=== PATIENT | male | born 1970 | race African-American/Black ===

== ENCOUNTER 2021-06-20 17:30 | Inpatient (IN) | payer OTHER ==
[~2021-06-20] VITALS: Ht 185.4 cm; Wt 233.8 kg
[2021-06-20] MEDS ORDERED: FUROSEMIDE INJ 10 MG/ML 4 ML VIAL IV ONE (21:30)
[2021-06-20] MEDS ORDERED: HYDROCODONE/APAP 10MG-325MG TAB PO ONE (21:45)
[2021-06-20] MEDS ORDERED: FUROSEMIDE INJ 10 MG/ML 4 ML VIAL ONE (21:53)
[2021-06-20] MEDS ORDERED: HYDROCODONE/APAP 5MG-325MG TAB ONE (21:58)
[2021-06-20] MEDS: FUROSEMIDE INJ 10 MG/ML 4 ML VIAL IV SCH (22:00)
[2021-06-20] MEDS ORDERED: ONDANSETRON HCL INJ 2MG/ML 2ML 2 MG/ML VIAL IV PRN (22:00)
[2021-06-20] MEDS ORDERED: HYDROCODONE/APAP 5MG-325MG TAB PO ONE (22:00)
[2021-06-20] MEDS ORDERED: ASPIRIN 81 MG CHEW TAB PO ONE (22:00)
[2021-06-20] MEDS ORDERED: SODIUM CHLORIDE FLUSH 10 ML SYR INJ PRN (22:00)
[2021-06-20] MEDS: RIVAROXABAN 10 MG TABLET PO SCH (22:04)
[2021-06-20 23:22] VITALS: BP 166/95
[2021-06-21] VITALS (8 sets, daily range): BP systolic 113–172; BP diastolic 70–97
[2021-06-21] MEDS ORDERED: TRAZODONE HCL100 MG PO (00:15)
[2021-06-21] MEDS ORDERED: FUROSEMIDE40 MG PO (00:15)
[2021-06-21] MEDS ORDERED: CARVEDILOL25 MG PO (00:15)
[2021-06-21] MEDS ORDERED: POTASSIUM CHLO20 ME1 PO (00:15)
[2021-06-21] MEDS ORDERED: ALLOPURINOL100 MG PO (00:15)
[2021-06-21] MEDS ORDERED: AMLODIPINE BESY10 MG PO (00:15)
[2021-06-21] MEDS ORDERED: HYDRALAZINE HC100 MG PO (00:15)
[2021-06-21] MEDS: FUROSEMIDE INJ 10 MG/ML 4 ML VIAL IV SCH ×5 (06:04→23:52)
[2021-06-21 07:03] LABS: BASOPHILS % 0.4 % (0.0-1.0); EOSINOPHILS # (AUTO) 0.2 (0.0-0.4); EOSINOPHILS % 2.3 % (0.0-6.0); HEMATOCRIT 42.9 % (38.2-49.6); HEMOGLOBIN 14.3 g/dL (14.0-18.0); LYMPHOCYTES # (AUTO) 1.3 (1.0-3.2); LYMPHOCYTES % 18.1 % (18.0-39.1); MEAN CORPUSCULAR HEMOGLOBIN 30.5 pg (28-32); MEAN CORPUSCULAR HGB CONC 33.3 g/dL (31-35); MEAN CORPUSCULAR VOLUME 91.5 fL (81-99); MONOCYTES # (AUTO) 0.8 (0.2-0.8); MONOCYTES % 10.9 % (4.4-11.3); PLATELET COUNT 242 x10e3/uL (140-360); RED BLOOD COUNT 4.69 x10e6/uL (4.3-5.7); RED CELL DISTRIBUTION WIDTH 15.5 % (11.7-14.4)
[2021-06-21 07:29] LABS: ALBUMIN 3.3 g/dL (3.5-5.0); ALBUMIN/GLOBULIN RATIO 0.7 (0.8-2.0); ANION GAP 13.3 mmol/L (8-16); CALCIUM 8.9 mg/dL (8.4-10.2); CHOL/HDL RATIO 4.7 (3.9-4.7); CREATININE, SERUM 1.69 mg/dL (0.72-1.25); POTASSIUM 3.3 mmol/L (3.5-5.1)
[2021-06-21 07:36] LABS: CREATINE KINASE MB 2.6 ng/mL (0-5.0)
[2021-06-21] MEDS: TAMSULOSIN HCL 0.4 MG CAP PO SCH (09:00)
[2021-06-21] MEDS: RIVAROXABAN 10 MG TABLET PO SCH ×2 (09:00→17:51)
[2021-06-21] MEDS ORDERED: POTASSIUM CHLORIDE 20 MEQ TAB CR PO NR (09:31)
[2021-06-21] MEDS: AMLODIPINE BESYLATE 10 MG TAB PO SCH (13:10)
[2021-06-21] MEDS: HYDRALAZINE HCL 100 MG TABLET PO SCH ×2 (13:10→17:55)
[2021-06-21] MEDS ORDERED: ACETAMINOPHEN 325 MG TAB PO PRN (14:15)
[2021-06-21 15:54] LABS: ANION GAP 12.3 mmol/L (8-16); CALCIUM 9.4 mg/dL (8.4-10.2); CREATININE, SERUM 1.76 mg/dL (0.72-1.25); POTASSIUM 3.3 mmol/L (3.5-5.1)
[2021-06-21 16:13] LABS: CREATINE KINASE MB 2.9 ng/mL (0-5.0)
[2021-06-21] MEDS: CARVEDILOL 12.5 MG TAB PO SCH (17:55)
[2021-06-21] MEDS: POTASSIUM CHLORIDE 20 MEQ TAB CR PO SCH (17:56)
[2021-06-21] MEDS: HYDROCODONE/APAP 7.5MG-325MG 1 EA TAB PO PRN (18:00)
[2021-06-21] MEDS ORDERED: HYDRALAZINE HCL 100 MG TABLET PO SCH (21:00)
[2021-06-21] MEDS: TRAZODONE HCL 50 MG TAB PO SCH (22:11)
[2021-06-22] VITALS (7 sets, daily range): BP systolic 103–136; BP diastolic 57–86
[2021-06-22] MEDS: FUROSEMIDE INJ 10 MG/ML 4 ML VIAL IV SCH ×4 (05:33→23:30)
[2021-06-22 05:49] LABS: BASOPHILS % 0.3 % (0.0-1.0); EOSINOPHILS # (AUTO) 0.2 (0.0-0.4); EOSINOPHILS % 2.4 % (0.0-6.0); HEMATOCRIT 43.8 % (38.2-49.6); HEMOGLOBIN 14.5 g/dL (14.0-18.0); LYMPHOCYTES # (AUTO) 1.1 (1.0-3.2); LYMPHOCYTES % 16.1 % (18.0-39.1); MEAN CORPUSCULAR HEMOGLOBIN 30.3 pg (28-32); MEAN CORPUSCULAR HGB CONC 33.1 g/dL (31-35); MEAN CORPUSCULAR VOLUME 91.6 fL (81-99); MONOCYTES # (AUTO) 0.8 (0.2-0.8); MONOCYTES % 11.8 % (4.4-11.3); NEUTROPHILS # (AUTO) 4.9 (2.1-6.9); NEUTROPHILS % 69.3 % (38.7-80.0); PLATELET COUNT 262 x10e3/uL (140-360); RED BLOOD COUNT 4.78 x10e6/uL (4.3-5.7); RED CELL DISTRIBUTION WIDTH 15.5 % (11.7-14.4)
[2021-06-22 06:24] LABS: ALBUMIN 3.4 g/dL (3.5-5.0); ALBUMIN/GLOBULIN RATIO 0.7 (0.8-2.0); ANION GAP 14.4 mmol/L (8-16); CALCIUM 9.4 mg/dL (8.4-10.2); CHOL/HDL RATIO 4.5 (3.9-4.7); CREATININE, SERUM 1.74 mg/dL (0.72-1.25); POTASSIUM 3.4 mmol/L (3.5-5.1)
[2021-06-22 06:34] LABS: CREATINE KINASE MB 2.2 ng/mL (0-5.0)
[2021-06-22 06:46] LABS: THYROID STIMULATING HORMONE 1.41 uIU/mL (0.350-4.940)
[2021-06-22] MEDS ORDERED: POTASSIUM CHLORIDE 20 MEQ TAB CR PO ONE (09:00)
[2021-06-22] MEDS: CARVEDILOL 12.5 MG TAB PO SCH ×2 (09:27→17:00)
[2021-06-22] MEDS: POTASSIUM CHLORIDE 20 MEQ TAB CR PO SCH ×2 (09:28→17:23)
[2021-06-22] MEDS: RIVAROXABAN 10 MG TABLET PO SCH ×2 (09:28→17:23)
[2021-06-22] MEDS: AMLODIPINE BESYLATE 10 MG TAB PO SCH (09:28)
[2021-06-22] MEDS: TAMSULOSIN HCL 0.4 MG CAP PO SCH (09:28)
[2021-06-22] MEDS: ALLOPURINOL 100 MG TAB PO SCH (09:29)
[2021-06-22] MEDS: HYDRALAZINE HCL 100 MG TABLET PO SCH ×3 (09:31→21:00)
[2021-06-22] MEDS: HYDROCODONE/APAP 7.5MG-325MG 1 EA TAB PO PRN ×2 (09:32→17:29)
[2021-06-22] MEDS ORDERED: ONDANSETRON HCL 4 MG ORAL DISINTEGRATING TAB PO PRN (10:00)
[2021-06-22 14:38] LABS: ANION GAP 12.7 mmol/L (8-16); CALCIUM 9.1 mg/dL (8.4-10.2); CREATININE, SERUM 2.12 mg/dL (0.72-1.25); POTASSIUM 3.7 mmol/L (3.5-5.1)
[2021-06-22] MEDS: TRAZODONE HCL 50 MG TAB PO SCH (23:30)
[2021-06-23] VITALS (9 sets, daily range): BP systolic 102–133; BP diastolic 58–84
[2021-06-23] MEDS: FUROSEMIDE INJ 10 MG/ML 4 ML VIAL IV SCH ×2 (05:59→16:41)
[2021-06-23] MEDS: TAMSULOSIN HCL 0.4 MG CAP PO SCH (08:07)
[2021-06-23] MEDS: POTASSIUM CHLORIDE 20 MEQ TAB CR PO SCH ×2 (08:07→16:47)
[2021-06-23] MEDS: CARVEDILOL 12.5 MG TAB PO SCH ×2 (08:07→16:41)
[2021-06-23] MEDS: RIVAROXABAN 10 MG TABLET PO SCH ×2 (08:08→16:47)
[2021-06-23] MEDS: HYDRALAZINE HCL 100 MG TABLET PO SCH ×3 (08:08→20:42)
[2021-06-23] MEDS: ALLOPURINOL 100 MG TAB PO SCH (08:08)
[2021-06-23] MEDS: AMLODIPINE BESYLATE 5 MG TAB PO SCH (08:08)
[2021-06-23] MEDS: DIGOXIN 0.125 MG TAB PO SCH (12:25)
[2021-06-23] MEDS: HYDROCODONE/APAP 7.5MG-325MG 1 EA TAB PO PRN ×2 (16:45→22:55)
[2021-06-23] MEDS: TRAZODONE HCL 50 MG TAB PO SCH (20:42)
[2021-06-24 00:34] VITALS: BP 120/67
[2021-06-24 04:21] VITALS: BP 121/64
[2021-06-24] MEDS: HYDROCODONE/APAP 7.5MG-325MG 1 EA TAB PO PRN ×2 (04:55→11:11)
[2021-06-24 06:35] LABS: ANION GAP 14.8 mmol/L (8-16); CALCIUM 9.2 mg/dL (8.4-10.2); CREATININE, SERUM 2.39 mg/dL (0.72-1.25); POTASSIUM 3.8 mmol/L (3.5-5.1)
[2021-06-24 08:46] VITALS: BP 121/65
[2021-06-24] MEDS: CARVEDILOL 12.5 MG TAB PO SCH (09:28)
[2021-06-24] MEDS: TAMSULOSIN HCL 0.4 MG CAP PO SCH (09:29)
[2021-06-24] MEDS: HYDRALAZINE HCL 100 MG TABLET PO SCH (09:29)
[2021-06-24] MEDS: DIGOXIN 0.125 MG TAB PO SCH (09:30)
[2021-06-24] MEDS: AMLODIPINE BESYLATE 5 MG TAB PO SCH (09:30)
[2021-06-24] MEDS: ALLOPURINOL 100 MG TAB PO SCH (09:31)
[2021-06-24] MEDS: RIVAROXABAN 10 MG TABLET PO SCH (09:31)
[2021-06-24] MEDS: POTASSIUM CHLORIDE 20 MEQ TAB CR PO SCH (09:32)
[2021-06-24] MEDS: FUROSEMIDE INJ 10 MG/ML 4 ML VIAL IV SCH (09:36)
[2021-06-24 09:37] VITALS: BP 121/65
== END 2021-06-24 12:16 | disposition home or self-care (01) | DRG 291 ==
LOC: FSED 17:47 → ERHOLD 22:03 → MED/SURG2 23:23
PROVIDERS: ADMIT Internal Medicine; ATTEND Internal Medicine
DX: I13.0 Hypertensive heart and chronic kidney disease with heart failure and stage 1 through stage 4 chronic kidney disease, or unspecified chronic kidney disease (principal); I50.43 Acute on chronic combined systolic (congestive) and diastolic (congestive) heart failure; Z68.44 Body mass index [BMI] 60.0-69.9, adult; I48.20 Chronic atrial fibrillation, unspecified; N17.9 Acute kidney failure, unspecified; J96.12 Chronic respiratory failure with hypercapnia; J96.11 Chronic respiratory failure with hypoxia; N50.89 Other specified disorders of the male genital organs; E78.5 Hyperlipidemia, unspecified; E66.01 Morbid (severe) obesity due to excess calories; F17.200 Nicotine dependence, unspecified, uncomplicated; E87.6 Hypokalemia; G47.30 Sleep apnea, unspecified; N18.30 Chronic kidney disease, stage 3 unspecified; Z20.822 Contact with and (suspected) exposure to COVID-19
CPT/HCPCS: 36415; 71045; 80048; 80053; 80061; 80076; 81003; 82550; 82553; 83735; 83880; 84443; 84484; 85025; 93005; 93306; 94799; 99284; J1940; Q0162; U0002